=== PATIENT | male | born 1965 | race African-American/Black ===

== ENCOUNTER 2020-01-27 10:13 | Observation (INO) ==
[2020-01-27 10:43] LABS: Basophils % 0.4 % (0.0-0.8); Eosinophils # 0.1 10*3/uL (0.0-0.87); Eosinophils % 1.2 % (0.00-10.9); Hematocrit 39.3 VOL% (42.0-52.0); Hemoglobin 13.8 GM/DL (14.0-18.0); Immature Granulocytes % 0.4 %; Immature Granulocytes Absolute 0.02 #; Lymphocytes # 1.7 10*3/uL (1.4-4.0); Lymphocytes % 33.8 % (21.2-54.2); Mean Corpuscular HGB Conc 35.1 GM/DL (32-36); Mean Corpuscular Volume 86.2 FL (87-102); Mean Platelet Volume 12.6 FL (9.6-12.0); Monocytes % 6.6 % (1.7-12.7); Neutrophils % 57.6 % (38.7-73.9); Platelet Count 129 T/CUMM (130-400); Red Blood Count 4.56 MC/CUMM (3.8-5.5); Red Cell Distribution Width 13.3 % (9.3-17.3)
[2020-01-27] MEDS ORDERED: ALUM/MAG/SIMETH/LIDO VISC 1:1 30 ML BOTTLE PO STA (11:00)
[2020-01-27 11:02] LABS: Eosinophils 2 % (0-10); Hypochromasia 1+; Lymphocytes 35 % (20-55); Segmented Neutrophils 56 % (50-85); Total Cells Counted 100
[2020-01-27 11:03] LABS: Microcytosis Slight
[2020-01-27 11:04] LABS: Albumin 3.4 G/DL (3.4-5.0); Bilirubin,Total 0.6 MG/DL (0.2-1.0); Calcium 8.9 MG/DL (8.5-10.1); Osmolality,Calculated 293.2 MOS/KG (273-304); Total Protein 7.4 G/DL (6.4-8.3)
[2020-01-27] MEDS ORDERED: SODIUM CHLORIDE 0.9% 1,000 ML IV STA (11:11)
[2020-01-27] MEDS ORDERED: INSULIN LISPRO 100 UNIT/ML SUBCUT STA (11:20)
[2020-01-27] MEDS ORDERED: ONDANSETRON 4 MG/2 ML VIAL IV PRN (15:19)
[2020-01-27] MEDS ORDERED: GLUCAGON 1 MG VIAL IM PRN ×2 (15:19→15:43)
[2020-01-27] MEDS ORDERED: DEXTROSE 50% 25 GM/50 ML VIAL IV PRN ×2 (15:19→15:43)
[2020-01-27] MEDS: SODIUM CHLORIDE 0.9% 1,000 ML IV SCH (17:25)
[2020-01-27] MEDS: INSULIN REGULAR 100 UNIT/ML SUBCUT SCH ×2 (17:26→20:24)
[2020-01-27] MEDS: GABAPENTIN 400 MG CAPSULE PO SCH (21:06)
[2020-01-27] MEDS: PANTOPRAZOLE 40 MG TABLET PO SCH (21:06)
[2020-01-27] MEDS: risperiDONE 1 MG TABLET PO SCH (21:06)
[2020-01-27] MEDS: traZODone 50 MG TABLET PO SCH (21:06)
[2020-01-28 08:02] LABS: Basophils % 0.6 % (0.0-0.8); Eosinophils # 0.1 10*3/uL (0.0-0.87); Eosinophils % 1.2 % (0.00-10.9); Hematocrit 39.3 VOL% (42.0-52.0); Hemoglobin 13.8 GM/DL (14.0-18.0); Immature Granulocytes % 0.2 %; Immature Granulocytes Absolute 0.01 #; Lymphocytes # 1.8 10*3/uL (1.4-4.0); Lymphocytes % 36.4 % (21.2-54.2); Mean Corpuscular HGB Conc 35.1 GM/DL (32-36); Mean Corpuscular Volume 85.8 FL (87-102); Mean Platelet Volume 12.9 FL (9.6-12.0); Monocytes % 6.2 % (1.7-12.7); Neutrophils % 55.4 % (38.7-73.9); Platelet Count 117 T/CUMM (130-400); Red Blood Count 4.58 MC/CUMM (3.8-5.5); Red Cell Distribution Width 13.6 % (9.3-17.3); White Blood Count 4.8 T/CUMM (4-12)
[2020-01-28 08:31] LABS: Albumin 2.9 G/DL (3.4-5.0); Bilirubin,Total 0.7 MG/DL (0.2-1.0); Calcium 8.5 MG/DL (8.5-10.1); Osmolality,Calculated 286.7 MOS/KG (273-304); Total Protein 6.8 G/DL (6.4-8.3)
[2020-01-28 08:32] LABS: Atypical Lymphocytes Few; Eosinophils 1 % (0-10); Lymphocytes 39 % (20-55); Segmented Neutrophils 55 % (50-85); Total Cells Counted 100
[2020-01-28 08:33] LABS: Microcytosis Slight; Platelet Estimate Adequate
[2020-01-28] MEDS ORDERED: KETOROLAC 30 MG/1 ML VIAL IV PRN (08:42)
[2020-01-28] MEDS: INSULIN REGULAR 100 UNIT/ML SUBCUT SCH ×4 (09:14→22:09)
[2020-01-28] MEDS: risperiDONE 1 MG TABLET PO SCH ×2 (09:15→21:09)
[2020-01-28] MEDS: EMTRICITABINE TENOFOVIR ALAFEN PO SCH (10:09)
[2020-01-28] MEDS: NON-FORMULARY MEDICATION (Dolutegravir [Tivicay] 50 MG) PO SCH (10:09)
[2020-01-28] MEDS: PANTOPRAZOLE 40 MG TABLET PO SCH ×2 (10:30→21:09)
[2020-01-28] MEDS: SODIUM CHLORIDE 0.9% 1,000 ML IV SCH (10:30)
[2020-01-28] MEDS: GABAPENTIN 400 MG CAPSULE PO SCH ×3 (10:57→21:08)
[2020-01-28 20:00] LABS: Hepatitis B Core IgM Quant 0.29 Index; Hepatitis B Surface Ag Quant < 0.10 Index; Hepatitis B Surface Ag Result Negative (Negative); Hepatitis C Virus Ab Quant 0.08 Index; Hepatitis C Virus Ab Result Negative (Negative)
[2020-01-28] MEDS: traZODone 50 MG TABLET PO SCH (21:08)
[2020-01-29 05:55] LABS: Basophils % 0.5 % (0.0-0.8); Eosinophils # 0.1 10*3/uL (0.0-0.87); Eosinophils % 1.4 % (0.00-10.9); Hematocrit 36.3 VOL% (42.0-52.0); Hemoglobin 12.7 GM/DL (14.0-18.0); Immature Granulocytes % 0.3 %; Immature Granulocytes Absolute 0.01 #; Lymphocytes # 1.7 10*3/uL (1.4-4.0); Lymphocytes % 45.8 % (21.2-54.2); Mean Corpuscular Volume 85.6 FL (87-102); Mean Platelet Volume 13.4 FL (9.6-12.0); Monocytes % 6.6 % (1.7-12.7); Neutrophils % 45.4 % (38.7-73.9); Platelet Count 105 T/CUMM (130-400); Red Blood Count 4.24 MC/CUMM (3.8-5.5); Red Cell Distribution Width 13.4 % (9.3-17.3); White Blood Count 3.7 T/CUMM (4-12)
[2020-01-29 06:18] LABS: Albumin 2.5 G/DL (3.4-5.0); Bilirubin,Total 1.1 MG/DL (0.2-1.0); Calcium 8.1 MG/DL (8.5-10.1); Total Protein 5.9 G/DL (6.4-8.3)
[2020-01-29 06:20] LABS: Hypochromasia 1+; Platelet Estimate Decreased
[2020-01-29 06:21] LABS: Microcytosis Slight; Target Cells Slight
[2020-01-29] MEDS: SODIUM CHLORIDE 0.9% 1,000 ML IV SCH ×2 (07:06→07:30)
[2020-01-29] MEDS: INSULIN LISPRO 100 UNIT/ML SUBCUT SCH ×2 (08:06→11:40)
[2020-01-29] MEDS ORDERED: LACTATED RINGERS 1,000 ML IV SCH (08:30)
[2020-01-29] MEDS ORDERED: propofoL 200 MG/20 ML VIAL IV ONE (09:00)
[2020-01-29] MEDS: NON-FORMULARY MEDICATION (Dolutegravir [Tivicay] 50 MG) PO SCH (09:00)
[2020-01-29] MEDS ORDERED: LIDOCAINE 2% 5 ML VIAL ONE (09:00)
[2020-01-29] MEDS: EMTRICITABINE TENOFOVIR ALAFEN PO SCH (09:00)
[2020-01-29] MEDS ORDERED: FLUCONAZOLE 200 MG TABLET PO ONE (10:28)
[2020-01-29 11:30] VITALS: BP 135/100
[2020-01-29] MEDS: risperiDONE 1 MG TABLET PO SCH (11:36)
[2020-01-29] MEDS: GABAPENTIN 400 MG CAPSULE PO SCH ×2 (11:36→15:18)
[2020-01-29] MEDS: PANTOPRAZOLE 40 MG TABLET PO SCH (11:37)
[2020-01-29 19:16] LABS: % CD4 (T Cells) 25 % (32-64); % CD8 (T Cells) 45 % (11-40); 4/8 Ratio 0.6 (>=0.9)
[2020-01-30] MEDS ORDERED: FLUCONAZOLE 100 MG TABLET PO SCH (09:00)
== END 2020-01-29 15:45 | disposition home or self-care (01) ==
LOC: N.EDINP 10:13 → N.ED 10:13 → SUATTDRO 15:19 → N.3E 16:19
PROVIDERS: ADMIT Internal Medicine; ATTEND Internal Medicine